=== PATIENT | male | born 1965 | race Caucasian/White ===

== ENCOUNTER 2018-06-29 23:58 | Emergency (ER) | payer OTHER, MEDICAID ==
[~2018-06-29] VITALS: Ht 167.6 cm; Wt 65.8 kg
[2018-06-30 00:45] VITALS: BP 132/97
== END 2018-06-30 09:43 | disposition left against medical advice (07) ==
LOC: ER 23:58
DX: F20.9 Schizophrenia, unspecified (principal); R41.82 Altered mental status, unspecified; J45.909 Unspecified asthma, uncomplicated; I10 Essential (primary) hypertension; F17.210 Nicotine dependence, cigarettes, uncomplicated